=== PATIENT | female | born 1955 | race Caucasian/White ===

== ENCOUNTER 2025-02-25 08:12 | Inpatient (IN) | payer MEDICARE ==
[2025-02-25] MEDS: Lactated Ringers 1,000 ML IV SCH (08:41)
[2025-02-25] MEDS: Nozin Nasal Sanitizer NASBOTH SCH ×2 (08:42→20:37)
[2025-02-25] MEDS ORDERED: Magnesium Hydroxide 400 MG/5 ML Susp 30 ML Cup PO PRN (09:39)
[2025-02-25] MEDS ORDERED: Morphine 2 MG/ML SYRINGE IVPUSH PRN (09:39)
[2025-02-25] MEDS ORDERED: Midazolam 1 MG/ML 2 ML SDV ONE ×3 (09:46→11:23)
[2025-02-25] MEDS ORDERED: Propofol 200 MG/20 ML SDV ONE ×2 (09:46→11:09)
[2025-02-25] MEDS ORDERED: fentaNYL 100 MCG/2 ML SDV ONE ×2 (09:46→11:24)
[2025-02-25] MEDS: ceFAZolin 2 GM in Premix Bag 1 BAG IV ONE (10:50)
[2025-02-25] MEDS: Bupivacaine 0.5% 50 ML MDV ONE (11:39)
[2025-02-25] MEDS: oxyCODONE 5 MG Tab PO PRN ×2 (13:29→19:28)
[2025-02-25] MEDS: Acetaminophen 325 MG Tab PO SCH (13:38)
[2025-02-25] MEDS: Ketorolac 30 MG/ML SDV IVPUSH PRN (15:02)
[2025-02-25] MEDS: Sodium Chloride 0.9% 1,000 ML IV SCH (17:26)
[2025-02-25] MEDS: ceFAZolin 2 GM in Premix Bag 1 BAG IV SCH (17:26)
[2025-02-25] MEDS: Ondansetron 4 MG/2 ML SDV IVPUSH PRN (23:46)
[2025-02-26] MEDS: Aspirin 325 MG Tab.EC PO SCH (08:20)
[2025-02-26] MEDS: Docusate Sodium 100 MG Cap PO PRN (21:45)
== END 2025-02-27 16:49 | disposition home or self-care (01) | DRG 470 ==
LOC: JP.SDS 08:12 → JP.MS 09:39
PROVIDERS: ADMIT Specialist; ATTEND Specialist
PROC: 0SRC0JZ Replacement of Right Knee Joint with Synthetic Substitute, Open Approach (ICD-10-PCS; principal; 2025-02-25 09:30)
DX: M17.11 Unilateral primary osteoarthritis, right knee (principal); M21.061 Valgus deformity, not elsewhere classified, right knee; Z98.891 History of uterine scar from previous surgery; Z98.890 Other specified postprocedural states; Z79.82 Long term (current) use of aspirin; Z79.899 Other long term (current) drug therapy
CPT/HCPCS: 20985; 27447; A9270; J7120; 01402-QZ; 73560-26-RT; 73560-RT; 97110-GP; 97116-GP; 97161-GP; C1713; C1776; J0665; J0690; J1885; J2250; J2405; J2704; J3010; J7030